=== PATIENT | male | born 1990 | race Caucasian/White ===

== ENCOUNTER 2022-11-10 02:02 | Emergency (ER) | payer OTHER, SELFPAY ==
--- NOTE | ~2022-11-10 | CT_ITS ---
Non-contrast CT scan of the Abdomen and Pelvis Clinical indication: Right-sided abdominal pain Technique: 2.5 mm axial scans were obtained through the abdomen and pelvis without intravenous or or al contrast. Dose reduction technique was used on this scan by utilizing automated exposure control a nd iterative reconstruction technique. The dose-length product (DLP) was 177.46 mGy-cm. Findings: Images through the lung bases reveal no abnormalities. There is a punctate right UVJ stone present. There is minimal fullness of the right ureter. Additiona l 2 mm nonobstructing right renal stone present. No left renal or left ureteral stone. No left hydron ephrosis. The liver, spleen, pancreas, gallbladder, and adrenals appear normal. There is no aortic aneurysm. There is no evidence of bowel obstruction. Images through the pelvis were performed. There is no evidence of ascites or lymphadenopathy. Urinary bladder otherwise unremarkable. No pelvic mass seen. Impression: Punctate right UVJ stone with minimal fullness the right ureter. Additional 2 mm nonobstructing right renal stone. Reviewed, dictated and finalized at location . Impression: Punctate right UVJ stone with minimal fullness the right ureter. Additional 2 mm nonobstructing right renal stone.
[2022-11-10 02:05] VITALS: BP 135/104; PULSE 80; RESP 18; TEMP 36.4; O2SAT 98
--- NOTE | 2022-11-10 02:06 | ED.ABDPAIN ---
HPI - Abdominal Pain General Chief Complaint: Abdominal Pain Stated Complaint: R Belly pain Time Seen by Provider: 11/10/22 02:06 Source: patient Mode of arrival: ambulatory Limitations: no limitations History of Present Illness HPI narrative: 32-year-old male with no known past medical history presents to the ER with a 20 minute history of -- right lower quadrant abdominal pain. No nausea /vomiting. No diarrhea. -- No fever. MD elicited complaint: abdominal pain Pertinent past history: none Onset (ago): minute(s) ( Started 20 minutes ago) Pain Consistency: constant Location: RLQ Severity: severe Quality: aching Radiation: none Migration to: no migration Exacerbating factors: nothing Relieving factors: nothing Associated symptoms: denies other symptoms Related Data Allergies Allergy/AdvReac Type Severity Reaction Status Date / Time No Known Allergies Allergy Verified 11/10/22 02:04 Review of Systems Review of Systems: All systems reviewed & are unremarkable except as noted in HPI and below Constitutional: Constitutional: Reports as per HPI and Reports no additional constitutional complaints Eyes: Eyes: Reports as per HPI and Reports no additional eye complaints ENT: Reports system reviewed and no additional complaints, except as documented and Reports as per HPI Cardiovascular: Cardiovascular: Reports as per HPI and Reports no additional cardiovascular complaints Respiratory: Respiratory: Reports as per HPI and Reports no additional respiratory complaints Gastrointestinal: Gastrointestinal: Reports as per HPI, Reports no additional gastrointestinal complaints and Reports abdominal pain Genitourinary: Genitourinary: Reports no additional male genitourinary complaints Musculoskeletal: Musculoskeletal: Reports no additional musculoskeletal complaints Integumentary/Breasts: Skin/Breast: Reports system reviewed and no additional complaints, except as docu and Reports as per HPI Neurologic: Reports system reviewed and no additional complaints, except as documented and Reports as per HPI Psychiatric: Psychiatric: Reports no additional psychiatric complaints, Reports as per HPI and Reports anxiety Endocrine: Endocrine: Reports no additional endocrine complaints and Reports as per HPI Hematologic/Lymphatic: Hematologic/Lymphatic: Reports no additional hematologic/lymphatic complaints and Reports as per HPI Allergic/Immunologic: Allergic/Immunologic: Reports no additional allergic/immunologic complaints and Reports as per HPI FORMERLY [facility], [facility] Social History Social History (Updated 11/10/22 @ 02:18 by Tito Valdes MD) Social History: history of cocaine use /meth use. Exam Const: General: diaphoretic and ill appearing Nutritional Appearance: thin Orientation/consciousness: patient oriented x3 Limitations: no limitations HENMT: Head: normal to inspection Ears: external ears normal Face/Nose/Sinus: Normal external nose present Face and sinus: normal facial exam Mouth: Yes Normal oral and palatal mucosa present Throat: posterior oropharynx normal Eyes: Conjunctivae: conjunctivae normal Pupils: Equal, round and reactive pupils present EOM: EOMs intact bilaterally Direct Ophthalmoscopy: no photophobia Neck: Neck: normal visual inspection, no lymphadenopathy, no meningeal signs and lymphadenopathy Chest: Chest palpation & inspection: normal inspection of the chest Resp: Effort & Inspection: normal respiratory effort Auscultation: clear to auscultation bilaterally Cardio: Rate: regular rate Rhythm: regular rhythm GI: GI Palp: Yes Soft to palpation Other: tenderness right lower quadrant without any rigidity or rebound. Back/Spine/Pelvis: Back: no CVA tenderness Skin: General skin exam: normal color Rashes: no rashes Wounds: no wounds Neuro: General: patient oriented x3, moves all extremities, no meningeal signs, no focal motor deficits and CN's II-XI intact bilaterally Cranial nerves: Yes
[2022-11-10] MEDS: LACTATED RINGERS 1,000 ML 999 ML IV CONT ×2 (02:25→03:21)
[2022-11-10] MEDS: MORPHINE SULFATE (*CRX) 4 MG/ML INJ IV PUSH (02:25)
[2022-11-10] MEDS: PROCHLORPERAZINE EDISYLATE 10 MG/2 ML VIAL IV PUSH (02:25)
[2022-11-10 02:37] LABS: Basophils Absolute Auto 0.12 K/mm3 (0.00-0.10); Basophils Percent Auto 0.9 % (0.0-1.0); Eosinophils Percent Auto 2.4 % (1.0-6.0); Hematocrit 39.7 % (40.0-54.0); Immature Granulocyte Absolute 0.05 K/mm3 (0.00-0.00); Immature Granulocyte Percent A 0.4 % (0.0-0.0); Lymphocytes Absolute Auto 4.88 K/mm3 (1.10-4.50); Lymphocytes Percent Auto 38.5 % (18.0-42.0); Mean Corpuscular HGB Conc 35.3 g/dL (32.0-36.0); Mean Corpuscular Hemoglobin 30.7 pg (27.0-31.0); Mean Corpuscular Volume 87.1 fL (78.0-102.0); Mean Platelet Volume 9.9 fl (8.7-11.0); Monocytes Absolute Auto 1.21 K/mm3 (0.10-0.90); Monocytes Percent Auto 9.6 % (2.0-11.0); Neutrophils Absolute Auto 6.1 K/mm3 (1.7-7.2); Neutrophils Percent Auto 48.2 % (50.0-70.0); Platelet Count Result 346 K/mm3 (150-420); Red Blood Count 4.56 M/mm3 (4.70-6.10); Red Cell Distribution Width 12.4 % (11.6-14.4); White Blood Count 12.7 K/mm3 (4.8-10.8)
[2022-11-10 02:40] LABS: Appearance Urine Cloudy (Clear); Bilirubin Urine 1+ (Negative); Blood Urine 3+ (Negative); Color Urine Brown (Yellow); Glucose Urine UA Negative (Negative); Ketones Urine Negative (Negative); Leukocyte Esterase Ur Negative LEU/UL (Negative); Nitrate Urine Negative (Negative); Protein Urine 2+ (Negative); Specific Grav Ur >= 1.030 (1.010-1.020); pH Urine 5.5 (5.0-8.0)
[2022-11-10 02:46] LABS: Add Urine Microscopic? YES; Bacteria Urine 1+ /hpf; RBC Urine >100 /hpf (0-2); Squamous Epithelial Cell Urine Rare /hpf (Few)
[2022-11-10 02:47] LABS: Amphetamine Screen Urine Positive (Negative); Barbiturate Screen Urine Negative (Negative); Benzodiazepines Screen Urine Negative (Negative); Cannabinoid Screen Urine Positive (Negative); Cocaine Screen Urine Negative (Negative); Methadone Screen Urine Negative (Negative); Opiate Screen Urine Negative (Negative); Phencyclidine Screen Urine Negative (Negative)
[2022-11-10 02:54] LABS: Alanine Aminotransferase 25 U/L (16-63); Albumin Level 3.8 g/dL (3.4-5.0); Alkaline Phosphatase 39 U/L (46-116); Anion Gap 8 mmol/L (8-16); Aspartate Amino Transferase 19 U/L (15-37); Bilirubin,Total 0.6 mg/dL (0.00-1.00); Blood Urea Nitrogen 17 mg/dL (7-18); Calcium 9.8 mg/dL (8.5-10.1); Carbon Dioxide 28 mmol/L (21-32); Chloride 103 mmol/L (98-108); Estimated CRCL calculation 64 ml/min; Estimated Glomerular Filt Rate > 60; Glucose 114 mg/dL (70-99); Osmolality Calculated 290 mOsm/kg (285-295); Potassium 3.4 mmol/L (3.5-5.1); Sodium 139 mmol/L (136-145)
[2022-11-10 02:56] LABS: Lipase 58 U/L (16-77)
[2022-11-10 02:57] LABS: Lactic Acid Reflex 1.2 mmol/L (0.4-2.0)
[2022-11-10 06:25] VITALS: BP 122/62; PULSE 77; RESP 18; TEMP 36.8; O2SAT 98
[2022-11-10 06:52] VITALS: BP 122/62; PULSE 78; RESP 16; TEMP 36.6; O2SAT 98
== END 2022-11-10 06:53 | disposition home or self-care (01) ==
PROVIDERS: Emergency Provider Internal Medicine Critical Care Medicine
DX: N20.0 Calculus of kidney (principal)
CPT/HCPCS: 36415; 74176; 80053; 80307; 81001; 83605; 83690; 85025; 96361; 96374; 96375; 99284; J0780; J2270; J7120

== ENCOUNTER 2023-01-14 00:27 | Emergency (ER) | payer OTHER, SELFPAY ==
[2023-01-14 00:30] VITALS: BP 150/96; PULSE 102; RESP 20; TEMP 36.6; O2SAT 99
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
[2023-01-14] MEDS: LIDO 1%/EPINEPHRINE 1:100,000 20 ML VIAL 10 ML INFILTRATE (00:50)
[2023-01-14] MEDS: KETOROLAC 30 MG/ML VIAL (*BKC) IV PUSH (01:25)
[2023-01-14] MEDS: TETANUS,DIPHTHERIA,AC PERTUSSIS ADULT 0.5 ML (ADACEL) IM (01:31)
[2023-01-14 01:40] VITALS: BP 133/89; PULSE 84; RESP 18; O2SAT 99
== END 2023-01-14 01:42 | disposition home or self-care (01) ==
LOC: CHSED 01:18
PROVIDERS: Emergency Provider Emergency Medicine
DX: S01.81XA Laceration without foreign body of other part of head, initial encounter (principal); Z23 Encounter for immunization; Y08.89XA Assault by other specified means, initial encounter; Y92.009 Unspecified place in unspecified non-institutional (private) residence as the place of occurrence of the external cause
CPT/HCPCS: 12013; 90471; 90715; 96374; 99284; J1885

== ENCOUNTER 2023-01-16 20:52 | Emergency (ER) | payer OTHER, SELFPAY ==
--- NOTE | 2023-01-16 21:00 | ED.SKABFB ---
HPI - Skin/Abscess/Foreign Bdy General Chief complaint: Skin/Abscess/Foreign Body Stated complaint: R wrist Abscess Time Seen by Provider: 01/16/23 21:00 Source: patient Mode of arrival: ambulatory Limitations: no limitations History of Present Illness HPI narrative: 32 years old white male presents with abscess like lesion at the right wrist noticed in the last few days. Patient also noticed a little pimple at the left knee anteriorly. Patient denies IV drug injection at that area. He denies any fever, chills, nausea, vomiting or having similar symptoms. Related Data Allergies Allergy/AdvReac Type Severity Reaction Status Date / Time No Known Allergies Allergy Verified 01/16/23 21:23 Review of Systems Review of Systems: All systems reviewed & are unremarkable except as noted in HPI and below PMFSH Past Medical History Medical History Kidney stone Surgical History Surgical History No pertinent past surgical history Social History Social History Social History: history of cocaine use /meth use. Exam Narrative: General appearance: Well-developed, well-nourished Skin: Right wrist showed an abscess 4 x 4 cm, red, diffusely tender, fluctuant at the right wrist laterally. 3 x 3 mm boil at the left knee anteriorly Head: Normocephalic, nontraumatic Eyes: Clear conjunctiva ENT: Oropharynx normal, ears normal, nose normal Neck: Supple, nontender Chest and respiratory: Airway patent, no respiratory distress, no accessory muscle use Heart: Regular rate/rhythm Vascular: Normal peripheral pulses, normal capillary refill. Musculoskeletal: Normal range of motion, nontender back Neurologic: Alert and oriented ?3, CLINICAL RESOURCE MANAGER is normal as tested, no gross motor deficit Course Vital Signs Vital signs: Vital Signs Temperature 37.0 C 01/16/23 21:03 Pulse Rate 102 H 01/16/23 21:03 Respiratory Rate 18 01/16/23 21:03 Blood Pressure 159/98 H 01/16/23 21:03 Pulse Oximetry 100 01/16/23 21:03 Oxygen Delivery Room Air 01/16/23 21:03 Temperature 37.0 C 01/16/23 21:03 Pulse Rate 102 H 01/16/23 21:03 Respiratory Rate 18 01/16/23 21:03 Blood Pressure 159/98 H 01/16/23 21:03 Pulse Oximetry 100 01/16/23 21:03 Oxygen Delivery Room Air 01/16/23 21:03 Procedures Abscess I/D upper extremity: Date of Incision: 01/16/23 Time of Incision: 21:05 Side (if applicable): right Local Anesthetic: lidocaine 1% and with epi Amount of anesthesia used (mL): 3 Technique: incised with #11 blade Amount of fluid expressed (mL): 5 Irrigation: No Packing used?: iodoform I&D Results: Pus and Blood Complications: pain and bleeding Abcess I&D Additional Comments: Patient was not cooperative with the procedure, using foul language. MDM - Skin/Abscess/Foreign Bdy MDM Narrative Medical decision making narrative: Patient presents with the above symptoms, vital signs on arrival stable, physical examination as above, Differential diagnosis include staph infection. Incision and drainage was done, patient tolerated the procedure poorly Culture was obtained, discharged on clindamycin 300 q.6 hours times 10 days. Differential Diagnosis Differential diagnosis: Likely abscess of skin or subcutaneous tissue Critical Care Time Critical Care Time Critical Care Time: Yes Total Critical Care Time: 10 Discharge Plan Discharge Clinical Impression: Abscess of skin or subcutaneous tissue Patient Dis
[2023-01-16 21:03] VITALS: BP 159/98; PULSE 102; RESP 18; TEMP 37; O2SAT 100
[2023-01-16] MEDS: LIDO 1%/EPINEPHRINE 1:100,000 20 ML VIAL 5 ML INFILTRATE (21:20)
--- NOTE | 2023-01-16 21:21 | PC.NURSE ---
patient seen by provider taking 3 containers of 4 x 4 gauze into his bag. RN politely asked patient to remove gauze from his personal bag in order to use the supplies for his care while in the ED. patient cooperative and education provided.
--- NOTE | 2023-01-16 21:40 | PC.NURSE ---
RN at bedside for I & D of right wrist abscess by KUN Phillips. Patient initially cooperative with staff, however began to be rude, shouting and cursing to ED staff throughout the procedure and at the end. Patient states to ERP I really fucking hate you right now and continues on to insult staff including and this RN despite staff continuing to care for patient. Wound dressed prior to patient discharge instruction. Patient strongly encouraged to hop picker and complete entire dose of antibiotic prescribed. Encouraged to use prescription card available in ED lobby. Patient shouting and cursing at RN while exiting the dept.
--- NOTE | 2023-01-20 13:37 | PC.NURSE ---
WOUND CULTURE REVIEWED. PT RX CLINDAMYCIN UPON DISCHARGE. TREATMENT IS APPROPRIATE, NO CHANGE NEEDED.
--- NOTE | 2023-01-20 13:38 | PC.NURSE ---
UNABLE TO CONTACT PT. PHONE NUMBER PROVIDED IS NOT ACCURATE. PT HAS NO FMD LISTED
--- NOTE | 2023-01-23 15:40 | PC.NURSE ---
final wound culture report reviewed from right wrist. Heavy MRSA . pt prescribed clindamycin. report shows sensitivity to clindamycin. no change in pt plan of care
== END 2023-01-16 21:41 | disposition home or self-care (01) ==
PROVIDERS: Emergency Provider Emergency Medicine
DX: L02.413 Cutaneous abscess of right upper limb (principal)
CPT/HCPCS: 10061; 87070; 87075; 87147; 87186; 87205; 99283

== ENCOUNTER 2023-10-25 23:37 | Emergency (ER) | payer OTHER, SELFPAY ==
--- NOTE | ~2023-10-25 | CT_ITS ---
Non-contrast Head CT History: Alcohol intoxication Technique: Axial non-contrast imaging of the brain was performed. Dose reduction technique was used on this scan by utilizing automated exposure control and iterative reconstruction technique. The dose -length product (DLP) was 1362.00 mGy-cm. Findings: There is no evidence of intracranial hemorrhage, mass lesion, or acute infarct. Brain par enchyma appears normal. The ventricles and subarachnoid spaces are normal in size. The calvarium ap pears normal. The visualized paranasal sinuses and mastoid air cells are clear. Impression: No significant abnormality seen. Reviewed, dictated and finalized at location . Impression: No significant abnormality seen.
[2023-10-25 23:41] VITALS: BP 134/101; PULSE 74; RESP 18; TEMP 36.8; O2SAT 100
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
--- NOTE | 2023-10-25 23:47 | ECG_ITS ---
Test Date: 2023-10-26 00:34:49 Measurements Intervals [place] Rate: 78 P: 89 ME: 161 QRS: 76 QRSD: 92 T: 70 QT: 392 QTc: 449 Interpretive Statements POOR QUALITY ECG BECAUSE OF MOTION ARTIFACT SINUS RHYTHM VOLTAGE CRITERIA FOR LVH [MEETS CRITERIA IN ONE OF: R(aVL), S(V1), R(V5), R(V5/V6)+S(V1)] BORDERLINE ECG No previous ECG available for comparison Electronically Signed On 10-26-2023 13:32:42 CDT by Alfredito Reid M.D.
[2023-10-26] VITALS (36 sets, daily range): BP systolic 105–145; BP diastolic 55–97; PULSE 67–108; RESP 13–24; TEMP 36.6–37.1; O2SAT 96–100
[2023-10-26 00:05] LABS: Basophils Absolute Auto 0.06 K/mm3 (0.00-0.10); Basophils Percent Auto 0.6 % (0.0-1.0); Eosinophils Absolute Auto 0.29 K/mm3 (0.02-0.50); Eosinophils Percent Auto 2.9 % (1.0-6.0); Hematocrit 41.3 % (40.0-54.0); Hemoglobin 14.3 g/dL (14.0-18.0); Immature Granulocyte Absolute 0.02 K/mm3 (0.00-0.00); Immature Granulocyte Percent A 0.2 % (0.0-0.0); Lymphocytes Absolute Auto 4.36 K/mm3 (1.10-4.50); Lymphocytes Percent Auto 43.8 % (18.0-42.0); Mean Corpuscular HGB Conc 34.6 g/dL (32-36); Mean Corpuscular Hemoglobin 29.9 pg (27.0-31.0); Mean Corpuscular Volume 86.4 fL (78.0-102.0); Mean Platelet Volume 9.8 fl (8.7-11.0); Neutrophils Absolute Auto 4.63 K/mm3 (1.70-7.20); Neutrophils Percent Auto 46.5 % (50.0-70.0); Platelet Count Result 310 K/mm3 (150-420); Red Blood Count 4.78 M/mm3 (4.70-6.10); Red Cell Distribution Width 12.9 % (11.6-14.4)
[2023-10-26] MEDS: LORazepam INJ (*CRX) 2 MG/ML VIAL IV PUSH (00:11)
--- NOTE | 2023-10-26 00:11 | PC.NURSE ---
PT WAS TAKEN TO CT BY RADIOLOGY, CONTINUOUS IMPROVEMENT COORDINATOR ACCOMPANIED FOR ASSISTANCE. WARP SCOURING VAT TENDER CALLED STATING BY WAS VERY AGITATED, CONFUSED, AND NON-COMPLIANT FOR SCAN. DR VELEZ NOTIFIED AND ORDERED ATIVAN IV PUSH AT THIS TIME.
[2023-10-26 00:17] LABS: Partial Thromboplastin Time 23.1 Sec (23.9-30.70); Prothrombin Time 11.1 Seconds (9.50-12.1)
[2023-10-26 00:22] LABS: Acetaminophen < 2 ug/mL (10-30); Alanine Aminotransferase 14 U/L (16-63); Alkaline Phosphatase 45 U/L (46-116); Anion Gap 11 mmol/L (4-12); Aspartate Amino Transferase 23 U/L (15-37); Bilirubin,Total 0.3 mg/dL (0.00-1.00); Blood Urea Nitrogen 16 mg/dL (7-18); Calcium 9.1 mg/dL (8.5-10.1); Carbon Dioxide 28 mmol/L (21-32); Chloride 102 mmol/L (98-108); Creatine Kinase 208 U/L (39-308); Estimated CRCL calculation 62 ml/min; Estimated Glomerular Filt Rate > 60; Glucose 105 mg/dL (70-99); Osmolality Calculated 293 mOsm/kg (285-295); Potassium 3.1 mmol/L (3.5-5.1); Sodium 141 mmol/L (136-145); Total Protein 7.1 g/dL (6.4-8.2)
[2023-10-26 00:22] LABS: Lipase 146 U/L (16-77); Magnesium 2.1 mg/dL (1.8-2.4); Troponin I < 4.0 ng/L (0.00-60.4)
[2023-10-26 00:23] LABS: Ethanol 167 mg/dL (0-6)
[2023-10-26 00:23] LABS: Lactic Acid Reflex 1.9 mmol/L (0.4-2.0)
--- NOTE | 2023-10-26 00:25 | PC.NURSE ---
PT RETURNED FROM CT VIA BRITTANY W RN & CYBER SECURITY SPECIALIST. PT CALM AND SLEEPING, AROUSABLE TO PAIN, FULL CARDIAC MONITORING, SPO2, B/P APPLIED.
[2023-10-26] MEDS: THIAMINE HCL INJ 100 MG, FOLIC ACID 1 MG, MULTIVITAMINS-12 INJ 10 ML, MAGNESIUM SULFATE... IV CONT (00:34)
--- NOTE | 2023-10-26 07:02 | PC.NURSE ---
REPORT TO SKY BROOKS.
[2023-10-26] MEDS: IBUPROFEN 600 MG TABLET PO (08:40)
[2023-10-26] MEDS: POTASSIUM BICARBONATE 25 MEQ TABEF 50 MEQ PO (08:41)
== END 2023-10-26 08:50 | disposition home or self-care (01) ==
PROVIDERS: Internal Medicine Critical Care Medicine; Emergency Provider Emergency Medicine
DX: F10.920 Alcohol use, unspecified with intoxication, uncomplicated (principal)
CPT/HCPCS: 36415; 70450; 80053; 80307; 82550; 83605; 83690; 83735; 84484; 85025; 85610; 85730; 93005; 96365; 96366; 96375; 99284; A9270; J2060; J3411; J3475; J7121

== ENCOUNTER 2023-12-03 00:12 | Emergency (ER) | payer OTHER, SELFPAY ==
[2023-12-03 00:46] VITALS: BP 138/89; PULSE 91; RESP 18; TEMP 36.8; O2SAT 97
--- NOTE | 2023-12-03 00:47 | ED.DENTAL ---
HPI - Dental/Oral General Chief complaint: Dental/Oral Stated complaint: upper and lower right side tooth pain Time Seen by Provider: 12/03/23 00:44 Source: patient Mode of arrival: ambulatory Limitations: no limitations History of Present Illness MD Complaint: tooth pain Teeth map: 1. dental tooth decay and cracked tooth with surrounding gum inflammation Onset (ago): week(s) Duration: constant Severity: moderate Severity scale (1-10): 6 Relieving factors: nothing Exacerbating factors: nothing Context: history of dental caries Associated symptoms: gum swelling Related Data Allergies Allergy/AdvReac Type Severity Reaction Status Date / Time No Known Allergies Allergy Verified 10/25/23 23:43 Review of Systems Review of Systems: All systems reviewed & are unremarkable except as noted in HPI and below PMFSH Past Medical History Medical History Kidney stone Surgical History Surgical History No pertinent past surgical history Social History Social History Social History: history of cocaine use /meth use. Exam Const: General: healthy appearing and no acute distress Nutritional Appearance: well nourished Orientation/consciousness: patient oriented x3 Limitations: no limitations HENMT: Head: normal to inspection Other: dental decay with surrounding gum inflammation Neck: Neck: normal visual inspection, no lymphadenopathy and no meningeal signs Chest: Chest palpation & inspection: normal inspection of the chest Resp: Effort & Inspection: normal respiratory effort Auscultation: clear to auscultation bilaterally Cardio: Rate: regular rate Rhythm: regular rhythm Course Course Emergency Course: patient received dose of p.o. antibiotic Augmentin and 60mg IM Toradol. Critical Care Time Critical Care Time Critical Care Time: No Discharge Plan Discharge Clinical Impression: Toothache, Dental caries, Dental abscess Patient Disposition: Home, Self-Care Condition: Stable Instructions: Antibiotic Form, Dental Abscess (ED), Toothache (ED) Additional Instructions: Take medication as prescribed and follow with Primary/dentist as soon as possible for further evaluation and treatment. Prescriptions: New amoxicillin 500 mg tablet 500 mg PO TID Qty: 30 0RF naproxen 500 mg tablet 500 mg PO BID Qty: 14 0RF Follow-up/Referrals: UNKNOWN,DOCTOR [Primary Care Provider] - Stand Alone Forms: Work/School Release IP Time of Disposition: 00:50
[2023-12-03] MEDS: AMOXICILLIN/CLAVULANATE K 875-125 MG TAB 1 TABLET PO (00:59)
[2023-12-03] MEDS: KETOROLAC (*BKC) 60 MG/2 ML VIAL IM (01:00)
[2023-12-03 01:25] VITALS: BP 130/74; PULSE 80; RESP 16; TEMP 36.6; O2SAT 95
== END 2023-12-03 01:25 | disposition home or self-care (01) ==
PROVIDERS: Emergency Provider Emergency Medicine
DX: K02.9 Dental caries, unspecified (principal); K04.7 Periapical abscess without sinus
CPT/HCPCS: 96372; 99283; A9270; J1885

== ENCOUNTER 2024-06-14 21:56 | Emergency (ER) | payer OTHER, SELFPAY ==
[2024-06-14 22:01] VITALS: BP 149/86; PULSE 136; RESP 18; TEMP 36; O2SAT 98
--- NOTE | 2024-06-14 22:01 | PC.NURSE ---
DR BLACKWOOD AT THE BEDSIDE AT THE BEDSIDE
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
[2024-06-14] MEDS: LIDO 1%/EPINEPHRINE 1:100,000 20 ML VIAL 5 ML INFILTRATE (22:35)
[2024-06-14] MEDS: NEOMYCIN/POLYMYXIN/BACITRACIN OINTMENT PACKET 1 PACKET TOPICAL (22:57)
[2024-06-14] MEDS: CEPHALEXIN 500 MG CAPSULE PO (22:57)
--- NOTE | 2024-06-14 23:00 | PC.NURSE ---
GIRLFRIEND AT THE BEDSIDE
[2024-06-14 23:07] VITALS: BP 132/76; PULSE 94; RESP 18; O2SAT 100
== END 2024-06-14 23:07 | disposition home or self-care (01) ==
LOC: CHSED 22:47
PROVIDERS: Emergency Provider Emergency Medicine
DX: S01.81XA Laceration without foreign body of other part of head, initial encounter (principal); Y09 Assault by unspecified means
CPT/HCPCS: 12011; 99283; A9270; J2004

== ENCOUNTER 2024-07-25 01:07 | Emergency (ER) | payer OTHER, SELFPAY ==
[2024-07-25 01:07] VITALS: BP 135/90; PULSE 95; RESP 18; TEMP 36.7; O2SAT 100
--- NOTE | 2024-07-25 01:21 | ED.BACK ---
HPI - Back Pain/Injury General Chief Complaint: Back Pain/Injury Stated Complaint: back pain Time Seen by Provider: 07/25/24 01:18 Source: patient Mode of arrival: ambulatory Limitations: no limitations History of Present Illness HPI Narrative: 34-year-old male with a history of alcohol use, polysubstance abuse, kidney stones presents to the ED with a one-week history of -- back pain extending from the neck down to the lower back. No history of recent trauma. 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 No fever or chills. No dysuria or hematuria. Patient is ambulatory. No prior history of back pain. No radiation of the pain. No bladder or bowel involvement. MD elicited complaint: back pain Onset (ago): week(s) ( One week) Timing: constant Severity: moderate Similar Symptoms Previously: No Quality: aching Location: lumbar spine ( cervical, thoracic and lumbar spine) and thoracic spine Radiation: none Exacerbating factors: movement Relieving factors: immobilization Associated symptoms: denies other symptoms Related Data Allergies Allergy/AdvReac Type Severity Reaction Status Date / Time No Known Allergies Allergy Verified 07/25/24 01:32 Review of Systems Review of Systems: All systems reviewed & are unremarkable except as noted in HPI and below PMFSH Past Medical History Medical History Kidney stone Surgical History Surgical History No pertinent past surgical history Social History Social History Social History: history of cocaine use /meth use. Exam Narrative: vitals are stable. Oxygen saturation of 100% on room air with a respiratory rate of 18. Afebrile Const: General: no acute distress Nutritional Appearance: thin Orientation/consciousness: patient oriented x3 Other: patient is drowsy but easily arousable. Patient was sleeping when I went to examine him. Appears to be in no distress. HENMT: Head: normal to inspection Ears: external ears normal Face/Nose/Sinus: Normal external nose present Face and sinus: normal facial exam Mouth: Yes Normal oral and palatal mucosa present Throat: posterior oropharynx normal Eyes: Conjunctivae: conjunctivae normal Pupils: Equal, round and reactive pupils present EOM: EOMs intact bilaterally Direct Ophthalmoscopy: no photophobia Neck: Neck: normal visual inspection, no lymphadenopathy and no meningeal signs Other: No spinal tenderness noted. Patient is able to move his head from side to side. Chest: Chest palpation & inspection: normal inspection of the chest Resp: Effort & Inspection: normal respiratory effort Auscultation: clear to auscultation bilaterally Cardio: Rate: regular rate Rhythm: regular rhythm GI: Auscultation: normal bowel sounds Other: Abdomen is soft. No tenderness/ rigidity /rebound. : General: Yes no CVA tenderness Back/Spine/Pelvis: Back: no CVA tenderness Other: No tenderness over the thoracic or the lumbar spine. Straight leg raising test is negative on both sides. No sensory or motor loss of the lower extremities Patient was able to sit up from lying position without any difficulty. Skin: General skin exam: normal color Rashes: no rashes Wounds: no wounds Neuro: General: patient oriented x3, moves all extremities, no meningeal signs, no focal motor deficits and CN's II-XI intact bilaterally Speech: normal speech Extrem: General: normal to inspection and no clubbing, cyanosis or edema Psych: Mental Status: mental status grossly normal Affect: normal affect Course Course Emergency Course: Back pain extending from the cervical to the lumbar region. Patient is afebrile. No spinal tenderness. No restriction of movement. Vital Signs Vital signs: Vital Signs Temperature 36.7 C 07/25/24 01:07 Pulse Rate 95 07/25/24 01:07 Respiratory Rate 18 07/25/24 01:07 Blood Pressure 135/90 07/25/24 01:07 Pulse Oximetry 100 07/25/24 01:07 Oxygen Delivery Room Air 07/25/24 01:07 Temperature 36.7 C 07/25/24 01:07 Pulse Rate 95 07/25/24 01:07 Respiratory Rate 18 07/25/24 01:07 Blood Pressure 135/90 07/25/24 01:07 Pulse Oximetry 100 07/25/24 01:07 Oxygen Delivery Room Air 07/25/24 01:07 MDM - Back Pain/Injury MDM Narrative Medical decision making narrative: Back pain Differential Diagnosis Differential diagnosis: Likely strain of lumbar region and thoracic back pain Medical Records Attestation: I reviewed the patient's medical records. Discharge Plan Discharge Clinical Impression: Musculoskeletal back pain Back pain Qualifiers: Back pain location: back pain in unspecified location Chronicity: acute Back pain laterality: bilateral Qualified Code(s): M54.9 - Dorsalgia, unspecified Patient Disposition: Home Condition: Stable Instructions: Antibiotic Form, Musculoskeletal Pain (ED) Patient Language: Indonesian Prescriptions: No Action amoxicillin 500 mg tablet 500 mg PO TID Qty: 30 0RF naproxen 500 mg tablet 500 mg PO BID Qty: 14 0RF cephalexin 500 mg capsule 500 mg PO Q8H 7 Days Qty: 21 0RF Follow-up/Referrals: UNKNOWN,DOCTOR [Primary Care Provider] - Time of Disposition: 02:13
[2024-07-25] MEDS: KETOROLAC 30 MG/ML VIAL (*BKC) IM (01:40)
== END 2024-07-25 02:16 | disposition home or self-care (01) ==
LOC: CHSED 02:11
PROVIDERS: Emergency Provider Internal Medicine Critical Care Medicine
DX: M54.50 Low back pain, unspecified (principal); M54.2 Cervicalgia
CPT/HCPCS: 96372; 99283; J1885

== ENCOUNTER 2024-10-11 04:00 | Emergency (ER) | payer OTHER, SELFPAY ==
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
== END 2024-10-11 05:42 | disposition left against medical advice (07) ==
LOC: CHSED 07:20
PROVIDERS: Emergency Provider Emergency Medicine; PCP Family Medicine
DX: S00.83XA Contusion of other part of head, initial encounter (principal); Y09 Assault by unspecified means
CPT/HCPCS: 70450; 70486; 96374; 99199; 99284; A9270; J1885